=== PATIENT | female | born 1985 ===

== ENCOUNTER 2018-01-29 15:48 | Emergency (ER) | payer MEDICAID ==
[2018-01-29 15:48] VITALS: BMI 27.7
--- NOTE | 2018-01-29 17:44 | C.PDOC ---
History Of Present Illness 32-year-old female, presents to the emergency department for repeat ultrasound. [place] [facility] for [place] bleeding and diagnosed with threatened . She was Rh(-) and given Rhogam. Pt returns today for repeat ultrasound. No other complaints at this time. <Oneyda Cowart - Last Filed: 01/29/18 18:59> History Per: Patient History/Exam Limitations: no limitations <Oneyda Cowart - Last Filed: 01/29/18 18:59> <Maty Blunt - Last Filed: 01/29/18 20:47> Time Seen by Provider: 01/29/18 16:19 Chief Complaint (Nursing): Abdominal Pain Past Medical History Reviewed: Historical Data, Nursing Documentation, Vital Signs Vital Signs: Last Vital Signs Temp 99 F 01/29/18 15:56 Pulse 78 01/29/18 15:56 Resp 18 01/29/18 15:56 BP 117/76 01/29/18 15:56 Pulse Ox 95 01/29/18 15:56 - Medical History PMH: Asthma, HTN Denies: Kidney Stones, Chronic Kidney Disease - [facility] Procedures INTRODUCE OF OTH THERAP SUBST INTO RESP TRACT, VIA OPENING (06/13/17) Family History: States: No Known Family Hx - Social History Hx Tobacco Use: Yes Hx Alcohol Use: No Hx Substance Use: No - Immunization History Hx Tetanus Toxoid Vaccination: No Hx Influenza Vaccination: No Hx Pneumococcal Vaccination: No <Oneyda Cowart - Last Filed: 01/29/18 18:59> Vital Signs: Last Vital Signs Temp 99 F 01/29/18 15:56 Pulse 69 01/29/18 18:50 Resp 18 01/29/18 18:50 BP 97/60 L 01/29/18 18:50 Pulse Ox 95 01/29/18 19:01 - [facility] Procedures INTRODUCE OF OTH THERAP SUBST INTO RESP TRACT, VIA OPENING (06/13/17) <Maty Blunt - Last Filed: 01/29/18 20:47> Review Of Systems Cardiovascular: Negative for: Chest Pain Gastrointestinal: Negative for: Nausea, Vomiting, Abdominal Pain Genitourinary: Negative for: Vaginal Discharge, Vaginal Bleeding Musculoskeletal: Negative for: Back Pain <Oneyda Cowart - Last Filed: 01/29/18 18:59> Physical Exam - Physical Exam Appears: Non-toxic, No Acute Distress Skin: Warm, Dry, No Rash Head: Atraumatic, Normacephalic Eye(s): bilateral: Normal Inspection Nose: Normal Oral Mucosa: Moist Lips: Normal Appearing Neck: Normal ROM Respiratory: No Accessory Muscle Use Gastrointestinal/Abdominal: Soft, No Tenderness Extremity: Normal ROM, No Deformity Neurological/Psych: Oriented x3, Normal Speech <Oneyda Cowart - Last Filed: 01/29/18 18:59> ED Course And Treatment - Laboratory Results Result Diagrams: 01/29/18 18:27 01/29/18 18:27 O2 Sat by Pulse Oximetry: 95 Pulse Ox Interpretation: Normal (RA) <Oneyda Cowart - Last Filed: 01/29/18 18:59> - Laboratory Results Result Diagrams: 01/29/18 18:27 01/29/18 18:27 <Maty Blunt - Last Filed: 01/29/18 20:47> Disposition - Disposition Disposition Time: 19:00 <Oneyda Cowart - Last Filed: 01/29/18 18:59> <Maty Blunt - Last Filed: 01/29/18 20:47> - Disposition Condition: STABLE Forms: [facility] (Faroese) - Clinical Impression Clinical Impression: Vaginal bleeding affecting early - Scribe Statement The provider has reviewed the documentation as recorded by the Scribe (Christine) All medical record entries made by the Scribe were at my direction and personally dictated by me. I have reviewed the chart and agree that the record accurately reflects my personal performance of the history, physical exam, medical decision making, and the department course for this patient. I have also personally directed, reviewed, and agree with the discharge instructions and disposition. <Oneyda Cowart - Last Filed: 01/29/18 18:59> Physician Patient Turnover Patient Signed Over To: Ildefonso Yang Handoff Comments: Pending labs, ultrasound and dispo <Oneyda Cowart - Last Filed: 01/29/18 18:59> Addendum Addendum: 01/29/18 20:44 32 y/o female on 7th . C/O lower abdominal cramping and vaginal spotting. patient had [place] [facility] [place] [facility] showed live IUP 6 week gestation. Patient endorsed to me pending repeat US (?) still c/o pain will give Tylenol and IV fluids <Maty Blunt - Last Filed: 01/29/18 20:47>
[2018-01-29 18:32] LABS: BASO % 0.3 % (0.0-2.0); EOS # 0.4 K/uL (0.0-0.7); HEMOGLOBIN 13.5 g/dL (11.0-16.0); LYMPH # 2.8 K/uL (1.0-4.3); LYMPH % 30.6 % (20.0-40.0); MEAN CELL VOLUME 89.7 fL (81.0-99.0); MEAN CORPUSCULAR HEMOGLOBIN 30.6 pg (27.0-31.0); MEAN CORPUSCULAR HGB CONC 34.1 g/dL (33.0-37.0); MEAN PLATELET VOLUME 7.7 fL (7.2-11.7); MONO # 0.6 K/uL (0.0-0.8); MONO % 6.7 % (0.0-10.0); NEUT # 5.4 K/uL (1.8-7.0); NEUT % 58.4 % (50.0-75.0); RBC 4.42 Mil/uL (3.80-5.20); RED CELL DISTRIBUTION WIDTH 13.8 % (11.5-14.5); WHITE BLOOD COUNT 9.3 K/uL (4.8-10.8)
[2018-01-29 18:37] LABS: SQUAMOUS EPITHIAL 23 /hpf (0-5); URINE BACTERIA FEW (<OCC); URINE BILIRUBIN NEGATIVE (NEGATIVE); URINE BLOOD NEGATIVE (NEGATIVE); URINE CLARITY Hazy (Clear); URINE COLOR Yellow (YELLOW); URINE GLUCOSE (UA) NORMAL (Normal); URINE LEUKOCYTE ESTERASE 1+ Leu/uL (Negative); URINE PROTEIN NEGATIVE (NEGATIVE); URINE UROBILINOGEN NORMAL mg/dL (0.2-1.0)
[2018-01-29 18:44] LABS: INR 1.1; PROTHROMBIN TIME 11.9 SECONDS (9.7-12.2)
[2018-01-29 18:50] LABS: ALB/GLOB RATIO 1.3 (1.0-2.1); ALBUMIN 4.2 g/dL (3.5-5.0); ALT/SGPT 36 U/L (9-52); AST/SGOT 22 U/L (14-36); BLOOD UREA NITROGEN 14 mg/dL (7-17); CALCIUM 9.6 mg/dl (8.6-10.4); GFR NON-AFRICAN AMERICAN > 60
[2018-01-29] MEDS ORDERED: Sodium Chloride 0.9% 500 ML IV ONE ×2 (20:45→20:47)
[2018-01-29 21:06] VITALS: BP 100/65; PULSE 70; RESP 20; TEMP 97.6; O2SAT 99
--- NOTE | 2018-01-30 14:26 | US ---
Date of service: 01/29/2018 PROCEDURE: OB Pelvic Ultrasound HISTORY: Vaginal bleeding LMP: 12/11/19 18 COMPARISON: None available. FINDINGS: UTERUS: The uterus measures approximately 14.8 x7 0.9 x 7.0 cm. Uterus is anteverted. Small posterior fibroid measuring 2.0 x 1.0 x 1.65 cm Gestational sac: MS D = 1.91 cm = 6 weeks 2 days. Yolk sac: 0.14 cm pole: CRL = 1.02 = 7 weeks 1 day: Heart rate: 133 bpm. age (Ultrasound estimated): 6 weeks 3 days +/-0 weeks 3 days Bella-gestational hemorrhage: None. Date of delivery (Ultrasound estimated) : 09/19/2018 Uterus measures cm. Normal in size and appearance. CERVIX: Measures 3.9 cm. Long and closed. No cervical abnormality seen. RIGHT OVARY: Measures 3.0 x 2.6 x 2.8 cm with a corpus luteum cyst of .. No mass lesion. Normal flow. LEFT OVARY: Measures 2.8 x 1.4 x 2.2 cm. No solid mass. Normal flow. FREE FLUID: No free fluid seen in the cul de sac OTHER FINDINGS: None. IMPRESSION: Single living intrauterine gestation with average ultrasound age approximately 6 weeks 5 days +/-0 weeks 3 days. See above discussion for additional details. There is a small posterior fibroid as above. Corpus luteum cyst of right ovary
== END 2018-01-29 21:30 | disposition home or self-care (01) ==
LOC: C.ER 15:48
DX: O20.9 Hemorrhage in early pregnancy, unspecified (principal); Z3A.01 Less than 8 weeks gestation of pregnancy
CPT/HCPCS: 76801; 80053; 81001; 84702; 85025; 85610; 85730; 99285; J7040